=== PATIENT | female | born 2000 | race Caucasian/White ===

== ENCOUNTER 2024-03-15 21:05 | Emergency (ER) | payer MEDICAID ==
[~2024-03-15] VITALS: Ht 160 cm; Wt 61.0 kg
[2024-03-15 21:08] VITALS: TEMP 98.7; O2SAT 100
[2024-03-15] MEDS: SODIUM CHLORIDE 0.9% 1,000 ML IV ONE (21:56)
[2024-03-15 22:27] LABS: BASOPHILS % 0.3 % (0.0-2.0); EOSINOPHILS % 0.3 % (0.0-5.0); HEMATOCRIT. 40.8 % (36.0-48.0); HEMOGLOBIN. 14.2 g/dL (12.0-16.0); LYMPHOCYTES % 12.9 % (20.0-50.0); MEAN CORPUSCULAR HEMOGLOBIN 29.7 pg (28.0-32.0); MEAN CORPUSCULAR HGB CONC 34.7 g/dL (31.0-37.0); MEAN CORPUSCULAR VOLUME 85.4 fL (81.0-99.0); MEAN PLATELET VOLUME 7.2 fl (7.4-10.4); MONOCYTES % 4.6 % (2.0-8.0); NEUTROPHILS % 81.9 % (40.0-76.0); PLATELET 203 x1000/uL (130-400); RED BLOOD CELL COUNT 4.78 mill/uL (4.2-5.4); RED CELL DISTRIBUTION WIDTH 13.3 % (11.6-14.6); WHITE BLOOD COUNT 9.8 x1000/uL (4.5-11.0)
[2024-03-15 22:29] LABS: CARBON DIOXIDE 24 mEq/L (21-32); CHLORIDE 106 mEq/L (98-107); POTASSIUM 4.2 mEq/L (3.5-5.1); SODIUM 139 mEq/L (136-145)
[2024-03-15 22:30] LABS: CALCIUM 9.8 mg/dL (8.7-10.4)
[2024-03-15 22:34] LABS: CREATININE 0.6 mg/dL (0.6-1.0); UREA NITROGEN BLOOD 8 mg/dL (9-23)
[2024-03-15 22:35] LABS: GLUCOSE 117 mg/dL (70-105)
[2024-03-15 22:36] LABS: ACETAMINOPHEN < 2 ug/mL (10-30); ALANINE AMINOTRANSFERASE 11 IU/L (10-49); ASPARTATE AMINOTRANSFERASE 28 IU/L (<34); VALPROIC ACID 30.8 ug/mL (50-100)
[2024-03-15 22:37] LABS: BILIRUBIN DIRECT 0.2 mg/dL (<=3.0); BILIRUBIN TOTAL 0.7 mg/dL (0.1-1.0); ETHANOL BLOOD < 10 mg/dL (<10); PROTEIN TOTAL 7.8 g/dL (6.0-8.3)
[2024-03-15 22:44] LABS: AMMONIA 55 uMol/L (<32)
[2024-03-16 01:38] LABS: CHLORIDE 110 mEq/L (98-107); POTASSIUM 3.6 mEq/L (3.5-5.1); SODIUM 142 mEq/L (136-145)
[2024-03-16 01:39] LABS: CALCIUM 9.2 mg/dL (8.7-10.4); CARBON DIOXIDE 24 mEq/L (21-32)
[2024-03-16 01:44] LABS: CREATININE 0.5 mg/dL (0.6-1.0); GLUCOSE 82 mg/dL (70-105); UREA NITROGEN BLOOD 7 mg/dL (9-23)
[2024-03-16 01:45] LABS: ALANINE AMINOTRANSFERASE 8 IU/L (10-49); AMMONIA 50 uMol/L (<32); ASPARTATE AMINOTRANSFERASE 13 IU/L (<34); VALPROIC ACID 71.7 ug/mL (50-100)
[2024-03-16 01:46] LABS: ACETAMINOPHEN < 2 ug/mL (10-30); ALBUMIN 4.3 g/dL (3.2-4.8); BILIRUBIN DIRECT 0.3 mg/dL (<=3.0); BILIRUBIN TOTAL 0.9 mg/dL (0.1-1.0); PROTEIN TOTAL 6.6 g/dL (6.0-8.3)
[2024-03-16 19:01] VITALS: BP 93/52; PULSE 88; RESP 15; O2SAT 99
== END 2024-03-16 19:29 | disposition left against medical advice (07) ==
LOC: ER 21:05 → EDBEDREQ 03-16 08:20 → EDBEDREQTM 03-16 09:30 → ER 03-16 19:29
DX: T50.901A Poisoning by unspecified drugs, medicaments and biological substances, accidental (unintentional), initial encounter (principal); I49.9 Cardiac arrhythmia, unspecified; F31.9 Bipolar disorder, unspecified; F41.9 Anxiety disorder, unspecified; Y92.9 Unspecified place or not applicable
CPT/HCPCS: 80076 ×2; 80048 ×2; 80307 ×2; 80329 ×2; 80320; 82140 ×2; 80165 ×2; 85025; 36415 ×2; 93005; 99285; J7030; G0480

== ENCOUNTER 2024-07-21 22:51 | Emergency (ER) | payer MEDICAID ==
[~2024-07-21] VITALS: Ht 154.9 cm; Wt 78.4 kg
[2024-07-21 23:08] VITALS: TEMP 36.9; O2SAT 99
[2024-07-22 00:01] LABS: CLARITY URINE CLOUDY (CLEAR); COLOR URINE YELLOW (YELLOW); GLUCOSE URINE NEGATIVE (NEGATIVE); KETONES URINE NEGATIVE (NEGATIVE); LEUKOCYTE ESTERASE URINE 3+ (NEGATIVE); NITRITE URINE NEGATIVE (NEGATIVE); OCCULT BLOOD URINE 1+ (NEGATIVE); PH URINE 7.5 (4.5-8.0); PROTEIN URINE NEGATIVE (NEGATIVE); SPECIFIC GRAVITY URINE 1.015 (1.005-1.030); UROBILINOGEN URINE 0.2 E.U./dL (0.2-1.0)
[2024-07-22 00:08] LABS: CHLORIDE 104 mEq/L (98-107); POTASSIUM 3.9 mEq/L (3.5-5.1); SODIUM 136 mEq/L (136-145)
[2024-07-22 00:09] LABS: CARBON DIOXIDE 24 mEq/L (21-32)
[2024-07-22 00:10] LABS: CALCIUM 9.9 mg/dL (8.7-10.4)
[2024-07-22 00:14] LABS: BASOPHILS % 0.6 % (0.0-2.0); CREATININE 0.6 mg/dL (0.6-1.0); EOSINOPHILS % 0.5 % (0.0-5.0); GLUCOSE 106 mg/dL (70-105); HEMATOCRIT. 43.1 % (36.0-48.0); HEMOGLOBIN. 14.9 g/dL (12.0-16.0); LYMPHOCYTES % 23.3 % (20.0-50.0); MEAN CORPUSCULAR HEMOGLOBIN 28.7 pg (28.0-32.0); MEAN CORPUSCULAR HGB CONC 34.6 g/dL (31.0-37.0); MEAN PLATELET VOLUME 6.6 fl (7.4-10.4); MONOCYTES % 6.2 % (2.0-8.0); NEUTROPHILS % 69.4 % (40.0-76.0); PLATELET 237 x1000/uL (130-400); RED BLOOD CELL COUNT 5.19 mill/uL (4.2-5.4); RED CELL DISTRIBUTION WIDTH 14.5 % (11.6-14.6); WHITE BLOOD COUNT 8.5 x1000/uL (4.5-11.0)
[2024-07-22 00:15] LABS: UREA NITROGEN BLOOD 7 mg/dL (9-23)
[2024-07-22 00:27] LABS: SQUAMOUS EPITHELIAL CELL URINE 1+ /lpf (RARE/1+)
[2024-07-22 00:28] LABS: WBC URINE 25-50 /hpf (0-2)
[2024-07-22 00:30] LABS: BACTERIA URINE 2+; TRICHOMONAS URINE 1+
[2024-07-22 00:30] LABS: B-HCG QUANTITATIVE 23619 mIU/mL (<6)
[2024-07-22] MEDS ORDERED: CEFP200T14 MT (00:53)
[2024-07-22] MEDS ORDERED: METR-167 MT (00:53)
[2024-07-22 02:08] VITALS: BP 134/70; PULSE 74; RESP 18; O2SAT 100
== END 2024-07-22 01:55 | disposition home or self-care (01) ==
LOC: ER 22:51
DX: O23.41 Unspecified infection of urinary tract in pregnancy, first trimester (principal); N39.0 Urinary tract infection, site not specified; Z3A.01 Less than 8 weeks gestation of pregnancy
CPT/HCPCS: 36415; 76801; 80048; 81003; 84702; 85025; 86850; 86900; 99284

== ENCOUNTER 2024-08-05 00:20 | Emergency (ER) | payer MEDICAID ==
[~2024-08-05] VITALS: Ht 154.9 cm; Wt 78.9 kg
[~2024-08-05 00:20] MED LIST: CEFP200T14 MT; METR-167 MT
[2024-08-05 00:26] VITALS: O2SAT 98
[2024-08-05] MEDS: SODIUM CHLORIDE 0.9% 1,000 ML IV ONE (00:45)
[2024-08-05 01:11] LABS: CARBON DIOXIDE 25 mEq/L (21-32); CHLORIDE 105 mEq/L (98-107); POTASSIUM 3.7 mEq/L (3.5-5.1); SODIUM 138 mEq/L (136-145)
[2024-08-05 01:17] LABS: CREATININE 0.6 mg/dL (0.6-1.0); GLUCOSE 94 mg/dL (70-105); UREA NITROGEN BLOOD 8 mg/dL (9-23)
[2024-08-05 01:18] LABS: ALANINE AMINOTRANSFERASE 24 IU/L (10-49)
[2024-08-05 01:19] LABS: ALBUMIN 4.9 g/dL (3.2-4.8); ASPARTATE AMINOTRANSFERASE 21 IU/L (<34); BILIRUBIN DIRECT 0.3 mg/dL (<=3.0); BILIRUBIN TOTAL 0.9 mg/dL (0.1-1.0); PROTEIN TOTAL 7.6 g/dL (6.0-8.3)
[2024-08-05 01:28] LABS: BASOPHILS % 0.6 % (0.0-2.0); EOSINOPHILS % 0.6 % (0.0-5.0); HEMATOCRIT. 40.6 % (36.0-48.0); HEMOGLOBIN. 14.4 g/dL (12.0-16.0); LYMPHOCYTES % 20.2 % (20.0-50.0); MEAN CORPUSCULAR HEMOGLOBIN 29.5 pg (28.0-32.0); MEAN CORPUSCULAR HGB CONC 35.4 g/dL (31.0-37.0); MEAN CORPUSCULAR VOLUME 83.2 fL (81.0-99.0); MEAN PLATELET VOLUME 6.8 fl (7.4-10.4); MONOCYTES % 6.3 % (2.0-8.0); NEUTROPHILS % 72.3 % (40.0-76.0); PLATELET 267 x1000/uL (130-400); RED BLOOD CELL COUNT 4.88 mill/uL (4.2-5.4); RED CELL DISTRIBUTION WIDTH 14.3 % (11.6-14.6); WHITE BLOOD COUNT 8.6 x1000/uL (4.5-11.0)
[2024-08-05 01:36] LABS: TROPONIN I HIGH SENSITIVITY < 4 ng/L (3.0-34)
[2024-08-05 01:39] LABS: B-HCG QUANTITATIVE 175476 mIU/mL (<6)
[2024-08-05 01:43] LABS: CALCIUM 9.5 mg/dL (8.7-10.4)
[2024-08-05] MEDS: ONDANSETRON HCL 4MG/2ML INJ IV ONE (02:08)
[2024-08-05 02:44] VITALS: BP 109/59; PULSE 70; RESP 18; TEMP 36.9; O2SAT 99
[2024-08-05 02:52] LABS: CLARITY URINE CLEAR (CLEAR); COLOR URINE YELLOW (YELLOW); GLUCOSE URINE NEGATIVE (NEGATIVE); KETONES URINE NEGATIVE (NEGATIVE); LEUKOCYTE ESTERASE URINE TRACE (NEGATIVE); NITRITE URINE NEGATIVE (NEGATIVE); OCCULT BLOOD URINE NEGATIVE (NEGATIVE); PH URINE 5.5 (4.5-8.0); PROTEIN URINE TRACE (NEGATIVE)
[2024-08-05] MEDS: FAMOTIDINE 20MG TABLET PO ONE (03:00)
[2024-08-05] MEDS: MAGNESIUM/ALUMINUM HYDROXIDE/SIMETHICONE 30ML UDC PO STA (03:01)
[2024-08-05] MEDS ORDERED: ONDA-239 PO (03:30)
[2024-08-05 04:32] LABS: SQUAMOUS EPITHELIAL CELL URINE 2+ /lpf (RARE/1+)
[2024-08-05 04:36] LABS: RBC URINE 0-2 /hpf (0-2)
[2024-08-05 04:38] LABS: BACTERIA URINE 1+
== END 2024-08-05 03:55 | disposition home or self-care (01) ==
LOC: ER 00:20
DX: O99.611 Diseases of the digestive system complicating pregnancy, first trimester (principal); K08.20 Unspecified atrophy of edentulous alveolar ridge; O26.891 Other specified pregnancy related conditions, first trimester; F41.9 Anxiety disorder, unspecified; Z3A.01 Less than 8 weeks gestation of pregnancy
CPT/HCPCS: 99285; 96374; 76705; 76801; 96361; 80076; 80048; 81003; 84702; 83690; 85025; 86850; 86900; 86901; 84484; 36415; 76817; 93005; J2405; J7030